=== PATIENT | female | born 1960 | race Caucasian/White ===

== ENCOUNTER → 2022-12-28 | Outpatient (CLI) | payer OTHER | LOC: M LAB 15:52 | PROVIDERS: ATTEND Physician Assistant Medical | DX: Z01.84 Encounter for antibody response examination (principal) ==

== ENCOUNTER → 2023-02-16 | Outpatient (CLI) | payer OTHER | LOC: M WHC 07:24 | PROVIDERS: ATTEND Nurse Practitioner Family | DX: Z12.31 Encounter for screening mammogram for malignant neoplasm of breast (principal) ==

== ENCOUNTER → 2023-12-31 | Outpatient (REF) | LOC: M LAB 10:37 | PROVIDERS: ATTEND Family Medicine | DX: Z02.1 Encounter for pre-employment examination (principal) ==

== ENCOUNTER 2024-02-24 12:28 | Emergency (ER) | payer OTHER ==
[~2024-02-24] VITALS: Ht 167.6 cm; Wt 81.8 kg
[2024-02-24] MEDS ORDERED: PRED20TA PO ×2 (13:44→14:49)
[2024-02-24] MEDS ORDERED: BENZ-18 PO (13:44)
[2024-02-24] MEDS ORDERED: ALBU6.7H6 INH (14:49)
[2024-02-24 14:57] VITALS: TEMP 97.1; O2SAT 99
[2024-02-24 15:03] VITALS: BP 142/64
== END 2024-02-24 15:03 | disposition home or self-care (01) ==
LOC: M ED 13:51
DX: J20.9 Acute bronchitis, unspecified (principal); I10 Essential (primary) hypertension

== ENCOUNTER 2024-07-22 15:31 | Emergency (ER) | payer OTHER ==
[~2024-07-22] VITALS: Ht 167.6 cm; Wt 77.3 kg
[~2024-07-22 15:31] MED LIST: ALBU6.7H6 INH; BENZ-18 PO; PRED20TA PO
[2024-07-22 17:32] VITALS: BP 123/70; TEMP 97.8; O2SAT 97
== END 2024-07-22 17:58 | disposition home or self-care (01) ==
LOC: M ED 15:31
DX: S90.31XA Contusion of right foot, initial encounter (principal); M79.605 Pain in left leg; W01.0XXA Fall on same level from slipping, tripping and stumbling without subsequent striking against object, initial encounter; Y92.9 Unspecified place or not applicable; Y93.9 Activity, unspecified; Y99.0 Civilian activity done for income or pay; I10 Essential (primary) hypertension; M77.31 Calcaneal spur, right foot; Z79.899 Other long term (current) drug therapy; Z88.8 Allergy status to other drugs, medicaments and biological substances